=== PATIENT | female | born 1950 | race Caucasian/White ===

== ENCOUNTER 2017-01-15 22:18 | Emergency (ER) | payer MEDICARE, OTHER ==
[~2017-01-15] VITALS: Ht 165.1 cm; Wt 65.0 kg
[~2017-01-15 22:18] MED LIST: CEPH500C3 PO; TRAM50 PO
[2017-01-15 22:34] VITALS: BP 138/81; PULSE 63; RESP 16; TEMP 98.5; O2SAT 95
[2017-01-15 23:31] VITALS: BP 136/78; PULSE 66; RESP 18; TEMP 98.5; O2SAT 97
--- NOTE | 2017-01-15 23:51 | PD ---
HPI Chief Complaint: Musculoskeletal Complaint Time Seen by Provider: 23:46 Travel History International Travel<30 days: No Contact w/Intl Traveler<30days: No Traveled to known affect area: No History of Present Illness HPI 66-year-old female complaining of left knee pain. Patient states that she twisted her left knee about 2 weeks ago. Patient states that she had persistent sharp pain localized in the medial aspect the left knee. Patient denies any pain radiation. Patient states the pain is worse with movement and the left knee joint. On a scale of 1-10 the pain is an 8. PFSH Past Medical History Diabetes: No Diminished Hearing: No GERD: Yes Kidney Stones: Yes Thyroid Disease: No Tetanus Vaccination: < 5 Years Influenza Vaccination: Yes ?: Not Menopausal: Yes Tubal Ligation: Yes (1989) Past Surgical History Tonsillectomy: Yes (1962) Social History Alcohol Use: No (1 GLASS WINE, EVENINGS) Tobacco Use: Yes (/ PPD) Substance Use: No Allergies-Medications (Allergen,Severity, Reaction): Coded Allergies: aspirin (Unverified Allergy, Severe, Ulcers, 01/15/17) penicillin G (Unverified Adverse Reaction, Unknown, Nausea/Vomiting, ) denies allergy Reported Meds & Prescriptions Reported Meds & Active Scripts Active No Active Prescriptions or Reported Medications Review of Systems General / Constitutional: No: Fever Eyes: No: Visual changes HENT: No: Headaches Cardiovascular: No: Chest Pain or Discomfort Respiratory: No: Shortness of Breath Gastrointestinal: No: Abdominal Pain Genitourinary: No: Dysuria Musculoskeletal: Positive: Pain Skin: No Rash Neurologic: No: Weakness Psychiatric: No: Depression Endocrine: No: Polydipsia Hematologic/Lymphatic: No: Easy Bruising Physical Exam Narrative GENERAL: Well-nourished, well-developed patient. SKIN: Focused skin assessment warm/dry. HEAD: Normocephalic. EYES: No scleral icterus. No injection or drainage. NECK: Supple, trachea midline. No JVD or lymphadenopathy. CARDIOVASCULAR: Regular rate and rhythm without murmurs, gallops, or rubs. RESPIRATORY: Breath sounds equal bilaterally. No accessory muscle use. GASTROINTESTINAL: Abdomen soft, non-tender, nondistended. MUSCULOSKELETAL: No cyanosis, or edema. Patient has moderate tenderness on palpation medial collateral ligament of the left knee. Limited range of motion of the left knee secondary to pain. No soft tissue swelling noted. No effusion noted. Knee joints stable. BACK: Nontender without obvious deformity. No CVA tenderness. Data Data Last Documented VS Vital Signs Date Time Temp Pulse Resp B/P (MAP) Pulse Ox O2 Delivery O2 Flow Rate FiO2 01/15/17 23:34 18 01/15/17 23:31 98.5 66 136/78 (97) 97 Orders Orders Knee, Complete (4vws) (01/15/17 23:48) MDM Medical Decision Making Medical Screen Exam Complete: Yes Emergency Medical Condition: Yes Differential Diagnosis Differential diagnosis including sprain, fracture, dislocation. Narrative Course 66-year-old female with left knee injury. Diagnosis Primary Impression: Left knee sprain Qualified Codes: S83.412A - Sprain of medial collateral ligament of left knee , initial encounter Patient Instructions: General Instructions Additional Instructions: Joselo wrap to left knee. Take medications as needed for pain. Follow-up with orthopedist. Med/Other Pt SpecificInfo: Prescription(s) given Scripts Tramadol (Ultram) 50 Mg Tab 50 MG PO Q6H Y for PAIN, #30 TAB 0 Refills Prov: Juan Oglesyb MD 01/15/17 Disposition: 01 DISCHARGE HOME Condition: Stable Juan Oglesby MD Jan 15, 2017 23:51
[2017-01-15] MEDS ORDERED: ULTR50TA5 PO (23:53)
--- NOTE | 2017-01-16 00:42 | RADRPT ---
EXAM DATE/TIME: 01/16/2017 00:01 [facility] COMPARISON: No previous studies available for comparison. INDICATIONS : Left medial knee pain post twisting. MEDICAL HISTORY : None. SURGICAL HISTORY : None. ENCOUNTER: Initial ACUITY: 1 day PAIN SCORE: 8/10 LOCATION: Left medial knee FINDINGS: Four view examination of the left knee demonstrates no evidence of fracture or dislocation. Bony min eralization is normal. Some loss of the medial tibiofemoral joint space characteristic of developing osteoarthritis. Small suprapatellar effusion. Probable small fabella in the posterior lateral joint s pace. CONCLUSION: 1. 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 2. Small suprapatellar effusion. Wild Palacios MD on January 16, 2017 at 0:38 Board Certified Radiologist. This report was verified electronically.
== END 2017-01-16 00:37 | disposition home or self-care (01) ==
LOC: PHED 22:18
DX: S83.412A Sprain of medial collateral ligament of left knee, initial encounter (principal); X58.XXXA Exposure to other specified factors, initial encounter; K21.9 Gastro-esophageal reflux disease without esophagitis; Z87.442 Personal history of urinary calculi; Z88.0 Allergy status to penicillin
CPT/HCPCS: 73564; 99283